=== PATIENT | female | born 1950 | race African-American/Black ===

== ENCOUNTER 2018-02-27 22:39 | Inpatient (IN) | payer OTHER, MEDICAID ==
[~2018-02-27] VITALS: Ht 170.2 cm; Wt 59.9 kg
[2018-02-28] MEDS ORDERED: MAGNESIUM HYDROXIDE 30 ML UDC PO PRN (05:30)
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
[2018-02-28] MEDS ORDERED: AMLO5TAB7 (06:53)
[2018-02-28] MEDS ORDERED: LISI-607 PO (06:53)
[2018-02-28] MEDS ORDERED: BENA20TA9 (06:53)
[2018-02-28] MEDS ORDERED: OMEP40CA37 PO (06:53)
[2018-02-28] MEDS ORDERED: EZET10TA27 PO (06:53)
[2018-02-28] MEDS ORDERED: LEVO25TA7 (06:53)
[2018-02-28] MEDS ORDERED: ASPI-1169 (06:53)
[2018-02-28] MEDS ORDERED: CELE-85 PO (06:53)
[2018-02-28] MEDS ORDERED: BISA-79 (06:54)
[2018-02-28] MEDS ORDERED: HYDR-3026 (06:54)
[2018-02-28] MEDS ORDERED: LUBI24CA5 (06:54)
[2018-02-28] MEDS ORDERED: DICL50TA9 (06:54)
[2018-02-28] MEDS ORDERED: DILT-32 (06:54)
[2018-02-28] MEDS ORDERED: FERR325T23 (06:54)
[2018-02-28] MEDS ORDERED: DIVA-78 PO (06:54)
[2018-02-28] MEDS ORDERED: CITA20TA16 (06:54)
[2018-02-28] MEDS ORDERED: RISP3TAB14 (06:54)
[2018-02-28] MEDS ORDERED: DIGO125T (06:54)
[2018-02-28] MEDS ORDERED: PANT40TA4 (06:54)
[2018-02-28] MEDS ORDERED: HALO5TAB (06:54)
[2018-02-28] MEDS ORDERED: OMEG1CAP55 (06:54)
[2018-02-28 08:00] VITALS: BP 100/52
[2018-02-28 08:16] LABS: ALBUMIN 3.3 g/dL (3.4-5.0); BILIRUBIN,TOTAL 0.2 mg/dL (0.2-1.0); CALCIUM, SERUM 9.3 mg/dL (8.5-10.1); CREATININE 0.7 mg/dL (0.6-1.3); POTASSIUM 4.5 mmol/L (3.5-5.1); TOTAL PROTEIN, SERUM 7.6 g/dL (6.4-8.2)
[2018-02-28] MEDS ORDERED: TEMAZEPAM 7.5 MG CAPSULE PO PRN (09:00)
[2018-02-28] MEDS: LORAZEPAM 0.5 MG TABLET PO PRN ×2 (10:07→20:37)
[2018-02-28] MEDS: DIVALPROEX SODIUM 250 MG TABLET.DR PO SCH ×2 (13:00→19:47)
[2018-02-28] MEDS: risperiDONE 1 MG TABLET PO SCH ×3 (13:00→16:21)
[2018-02-28] MEDS: BENZTROPINE MESYLATE (1 MG) 1 MG TABLET PO SCH ×2 (13:04→16:21)
--- NOTE | 2018-02-28 14:33 | NUR ---
DAJUAN STATED THAT MED RECON NOT DONE RIGHT. TOLD US TO FIND WHAT MEDS SHE IS ON. WE CALLED [facility] AND LEFT A MESSAGE. CALLED THE FACILITY SHE WAS AT AND LEFT A MESSAGE. WAITING FOR BOTH TO CALL BACK.
[2018-02-28 16:00] VITALS: BP 133/72
[2018-02-28] MEDS: MAG HYDROX/AL HYDROX/SIMETH 30 ML UDC PO PRN (19:31)
[2018-02-28 19:55] VITALS: BP 168/82
[2018-02-28 20:00] VITALS: BP 162/82
--- NOTE | 2018-02-28 20:00 | NUR ---
GPS/RN OPENING NOTES RECEIVED PATIENT ALERT, AWAKE, AMBULATES NAD ABLE TO VERBALIZE NEEDS AT ALL TIMES, PROVIDED FLUIDS AND REFUSES TO TAKE DEPAKOTE PO MEDS BUT REQUESTED TO HAVE SOME MEDICATION MAALOX FOR STOMACH UPSET/GAS. RESPIRATIONS EVEN AND UNLABORED. SKIN WARM TO TOUCH. BEHAVIOR WITH NO S/S OF DISTRESS, RIGHT EYE BLIND, REQUIRE MONITORING, PATIENT DENIES PAIN AT THIS TIME, ATTEND TO NEEDS. WILL CONTINUE TO MONITOR, INSTRUCTED TO CALL FOR HELP.
--- NOTE | 2018-02-28 20:33 | NUR ---
GPS/RN NOTES PATIENT EXBITING S/S OF AGITATION, PACING AND VERBALIZING NEEDS
[2018-02-28] MEDS: TEMAZEPAM 7.5 MG CAPSULE PO PRN (22:19)
--- NOTE | 2018-02-28 22:19 | NUR ---
gps/rn notes requested for medication to help sleep.alert, oriented, able to verbalize needs, in bed,
[2018-03-01] MEDS: MAG HYDROX/AL HYDROX/SIMETH 30 ML UDC PO PRN (04:02)
[2018-03-01] MEDS: LORAZEPAM 0.5 MG TABLET PO PRN ×3 (04:40→19:54)
--- NOTE | 2018-03-01 04:43 | NUR ---
gps/rn notes patient observe awake, verbalize needs to eat some snacks, informed and made aware about tv watching, coopertaive and able to do some pacing and reading but communicates with staff and charge nurse about opinions and feelings. discussed the plan for her to have her transfered to another room private by charge nurse and supervisor lump room decision, made aware and agreed for the thomas. requeted to have ativan as patient appears/observe inability to relax.
[2018-03-01] MEDS: ACETAMINOPHEN 325 MG TABLET PO PRN (05:22)
--- NOTE | 2018-03-01 05:24 | NUR ---
GPS/RN NOTES AWAKEN FROM SLEEP ASKED FOR SOME SNACKS AND TYLENOL
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
--- NOTE | 2018-03-01 07:00 | NUR ---
gps/rn notes patient was trasfered to [facility] floor 2 by shoe lacer and charge nurse and supervisor acoustical tile carpenters made aware as planned and agreed by patient. ambulatory. one on one sitter with patient for safety.
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
--- NOTE | 2018-03-01 07:07 | NUR ---
RN GPS NOTES PATIENT ARRIVED TO UNIT @ 0701 AMBULATORY FROM GPS ACCOMPANIED BY GPS NURSE AND SITTER. ALERT AND ORIENTED X 2, CONFUSED. PT RE-ORIENTED TO UNIT, ROOM AND STAFF. ON ROOM AIR, BREATHING EVEN AND UNLABORED. ALL SAFETY MEASURES IN PLACE. WILL CONTINUE TO MONITOR PATIENT.
[2018-03-01 07:42] LABS: CHOLESTEROL 169 mg/dL (<200); HDL CHOLESTEROL 69 mg/dL (40-60); LDL 104 mg/dL (0-99); TRIGLYCERIDES 59 mg/dL (30-150)
[2018-03-01] MEDS: risperiDONE 1 MG TABLET PO SCH ×3 (07:51→16:35)
[2018-03-01] MEDS: BENZTROPINE MESYLATE (1 MG) 1 MG TABLET PO SCH ×3 (07:51→16:35)
[2018-03-01 08:00] VITALS: BP 107/61
[2018-03-01] MEDS: DIVALPROEX SODIUM 250 MG TABLET.DR PO SCH (09:00)
--- NOTE | 2018-03-01 09:53 | NUR ---
INITIAL DISCHARGE PLAN: Patient wishes to be discharged to [facility] Address: [address], [place] [address] . TOMMY will help form a safe and proper discharge in collaboration with .
--- NOTE | 2018-03-01 09:57 | NUR ---
UR NOTE: TOMMY faxed clinical review to Simin from [facility]: [phone] P: [phone] ex 223.
[2018-03-01] MEDS: OXCARBAZEPINE 150 MG TABLET PO SCH ×2 (10:54→16:35)
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
[2018-03-01] MEDS ORDERED: HALOPERIDOL LACTATE INJ 5 MG/ML VIAL IM ONE (11:30)
--- NOTE | 2018-03-01 11:47 | NUR ---
RN NOTES PATIENT ADMINISTERED HALOPERIDOL 2MG IM ON HER LEFT DELTOID AT 1130. BP WAS 132/74 MMHG. WILL CONTINUE TO MONITOR.
--- NOTE | 2018-03-01 15:28 | NUR ---
RN NOTES RECEIVED CALL FROM GITA VANEGAS OF [facility] AND WAS INFORMED THAT PT IS POSITIVE OF MRSA OF BOTH NARES. CONTACT ISOLATION STARTED. WILL CONTINUE TO MONITOR.
--- NOTE | 2018-03-01 15:44 | NUR ---
RN NOTES DR GRAFF CAME TO UNIT AND INFORMED THAT PT IS POSITIVE FOR MRSA OF BOTH NARES. HE ORDERED TO START PT ON BACTROBAN OINTMENT TO BOTH NARES Q 12HRS. WILL CONTINUE TO MONITOR
[2018-03-01 17:48] VITALS: BP 125/58
--- NOTE | 2018-03-01 18:37 | NUR ---
GPS/RN CLOSING NOTES PATIENT ASLEEP IN BED AT THIS TIME, EASILY AWAKENS. 1:1 SITTER AT BEDSIDE. PT IS A/O X 2-3, SAME ABLE TO VERBALIZED NEEDS. DENIES HI/SI DURING SHIFT. ALL NEEDS AND CARE ATTENDED WELL. ON ROOM AIR, RESPIRATIONS EVEN AND UNLABORED, SKIN WARM TO TOUCH. ALL SAFETY MEASURES KEPT IN PLACE. BED IN LOW/LOCKED POSITION WITH SIDE RAILS UP 2X. WILL ENDORSE TO ROUTE SALESPERSON NURSE FOR ISABEL.
--- NOTE | 2018-03-01 19:59 | NUR ---
RN NOTES PT IS ANXIOUS- ATIVAN 0.5MG PO GIVEN ORDERED, V/S STABLE
[2018-03-01 20:00] VITALS: BP 108/72
[2018-03-01] MEDS: MUPIROCIN OINT 2% 22 GM TUBE SCH (21:25)
[2018-03-02] MEDS: TEMAZEPAM 7.5 MG CAPSULE PO PRN ×2 (00:36→21:56)
--- NOTE | 2018-03-02 00:44 | NUR ---
RN NOTES PT. ASKED FOR SLEEPING PILL- RESTORIL 7.5MG POP GIVEN ORDERED
[2018-03-02] MEDS: ACETAMINOPHEN 325 MG TABLET PO PRN ×3 (01:37→14:43)
--- NOTE | 2018-03-02 02:10 | NUR ---
RN NOTES PT ASKED FOR PAIN MEDICATION- TYLENOL 650MG PO GVEIN ORDERED
[2018-03-02] MEDS: LORAZEPAM 0.5 MG TABLET PO PRN ×3 (03:52→17:39)
--- NOTE | 2018-03-02 03:57 | NUR ---
RN NOTES PT IS SO ANXIOUS AND STARTED TO SCREAM- ATIVAN 0.5 MG PO GIVEN ORDERED
--- NOTE | 2018-03-02 07:17 | NUR ---
GPS/RN OPENING NOTES PATIENT RECEIVED AWAKE AND WALKING AROUND IN HER ROOM. 1:1 SITTER PRESENT IN ROOM. A/O X 2-3. ABLE TO COMMUNICATE VERBALLY, DENIES PAIN OR DISCOMFORTS AT THIS TIME. DENIES HI/SI. ON ROOM AIR, RESPIRATIONS EVEN AND UNLABORED, SKIN WARM TO TOUCH. CONTACT PRECAUTIONS FOR MRSA OF NARES MAINTAINED. ALL SAFETY MEASURES IN PLACE. BED IN LOW/LOCKED POSITION WITH SIDE RAILS UP 2X. WILL CONTINUE TO MONITOR PT.
[2018-03-02] MEDS: BENZTROPINE MESYLATE (1 MG) 1 MG TABLET PO SCH ×3 (07:51→17:39)
[2018-03-02] MEDS: risperiDONE 1 MG TABLET PO SCH ×3 (07:51→17:39)
[2018-03-02 08:00] VITALS: BP 129/69
[2018-03-02] MEDS: OXCARBAZEPINE 150 MG TABLET PO SCH ×2 (08:44→17:39)
[2018-03-02] MEDS: MUPIROCIN OINT 2% 22 GM TUBE SCH ×2 (08:45→21:57)
--- NOTE | 2018-03-02 10:31 | NUR ---
RN NOTES PATIENT RESTLESS, TALKING LOUDLY AND ANXIOUS. ATIVAN 0.5MG TAB GIVEN AT 1029. WILL CONTINUE TO MONITOR.
--- NOTE | 2018-03-02 13:36 | NUR ---
UR NOTE: TOMMY faxed clinical review to Simin from [facility]: [phone] P: [phone] ex 223.
--- NOTE | 2018-03-02 14:44 | NUR ---
COLLABORATIVE PHYSICIAN PATIENT COMPLAINED OF MILD HEADACHE AND REQUESTED FOR TYLENOL. [place] [address]. WILL CONTINUE TO MONITOR
[2018-03-02 16:00] VITALS: BP 118/62
--- NOTE | 2018-03-02 17:41 | NUR ---
RN NOTES PATIENT NOTED ANXIOUS AND AGITATED. ATIVAN 0.5MG TAB GIVEN AT 1739. WILL CONTINUE TO MONITOR.
--- NOTE | 2018-03-02 18:16 | NUR ---
RN NOTES PATIENT TRANSFERRED FROM M/S 2 ROOM 209-1 TO GPS ROOM 217-1 VIA WHEELCHAIR AT 1805. REPORT GIVEN TO NURSE BAUER.
--- NOTE | 2018-03-02 18:20 | NUR ---
GPS/RN-NOTES RECEIVED REPORT FROM AMISHA (RN) MS2 OVERFLOW. PATIENT AWAKE,ALERT/ORIENTED X3 UP IN THE WHEELCHAIR.PATIENT ABLE TO AMBULATE WITH STEADY GAIT. ALL BELONGINGS WAS PUT IN THE HIS CLOSET.
[2018-03-03] MEDS: LORAZEPAM 0.5 MG TABLET PO PRN (03:09)
[2018-03-03] MEDS: MAG HYDROX/AL HYDROX/SIMETH 30 ML UDC PO PRN (03:16)
[2018-03-03 08:00] VITALS: BP 119/57
[2018-03-03] MEDS: BENZTROPINE MESYLATE (1 MG) 1 MG TABLET PO SCH ×3 (08:34→17:53)
[2018-03-03] MEDS: risperiDONE 1 MG TABLET PO SCH ×3 (08:35→17:53)
[2018-03-03] MEDS: OXCARBAZEPINE 150 MG TABLET PO SCH ×3 (08:35→17:53)
[2018-03-03] MEDS: MUPIROCIN OINT 2% 22 GM TUBE SCH ×2 (11:22→22:29)
[2018-03-03 16:00] VITALS: BP 136/55
--- NOTE | 2018-03-03 16:31 | NUR ---
[address] ESPANA IN TO SEE PT.
[2018-03-03 20:00] VITALS: BP 154/91
[2018-03-03] MEDS: ATORVASTATIN 10 MG TABLET PO SCH (22:25)
[2018-03-03] MEDS: TEMAZEPAM 7.5 MG CAPSULE PO PRN (23:47)
--- NOTE | 2018-03-03 23:48 | NUR ---
C/O INSOMNIA, TEMAZEPAM 7.5 MG CAP PO GIVEN PER PATIENT'S REQUEST.
[2018-03-04 08:00] VITALS: BP 121/73
[2018-03-04] MEDS: BENZTROPINE MESYLATE (1 MG) 1 MG TABLET PO SCH ×4 (09:00→17:03)
[2018-03-04] MEDS: MAG HYDROX/AL HYDROX/SIMETH 30 ML UDC PO PRN (09:00)
[2018-03-04] MEDS: risperiDONE 1 MG TABLET PO SCH ×4 (09:00→17:03)
[2018-03-04] MEDS: OXCARBAZEPINE 150 MG TABLET PO SCH ×4 (09:00→17:03)
[2018-03-04] MEDS: LORAZEPAM 0.5 MG TABLET PO PRN ×2 (09:00→23:58)
[2018-03-04] MEDS: MUPIROCIN OINT 2% 22 GM TUBE SCH ×2 (09:01→21:29)
[2018-03-04] MEDS: ACETAMINOPHEN 325 MG TABLET PO PRN (14:48)
[2018-03-04 16:00] VITALS: BP 138/82
[2018-03-04 20:24] VITALS: BP 124/49
[2018-03-04] MEDS: ATORVASTATIN 10 MG TABLET PO SCH (21:29)
[2018-03-04] MEDS: TEMAZEPAM 7.5 MG CAPSULE PO PRN (22:02)
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
[2018-03-05] MEDS: ACETAMINOPHEN 325 MG TABLET PO PRN (02:23)
[2018-03-05] MEDS: MAG HYDROX/AL HYDROX/SIMETH 30 ML UDC PO PRN ×3 (05:55→21:05)
[2018-03-05 08:00] VITALS: BP 112/71
[2018-03-05] MEDS: BENZTROPINE MESYLATE (1 MG) 1 MG TABLET PO SCH ×3 (08:23→16:27)
[2018-03-05] MEDS: OXCARBAZEPINE 150 MG TABLET PO SCH ×3 (08:23→16:27)
[2018-03-05] MEDS: MUPIROCIN OINT 2% 22 GM TUBE SCH ×2 (08:23→21:08)
[2018-03-05] MEDS: risperiDONE 1 MG TABLET PO SCH ×3 (08:23→16:26)
--- NOTE | 2018-03-05 09:06 | NUR ---
UR NOTE: TOMMY faxed clinical review to Simin from [facility]: [phone] P: [phone] ex 223.
[2018-03-05] MEDS: LORAZEPAM 0.5 MG TABLET PO PRN (10:56)
--- NOTE | 2018-03-05 10:57 | NUR ---
RN NOTES PATIENT NOTED ANXIOUS AND AGITATED. ATIVAN 0.5MG TAB GIVEN WILL CONTINUE TO MONITOR.
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
[2018-03-05 16:00] VITALS: BP 145/91
[2018-03-05 20:00] VITALS: BP 123/58
[2018-03-05 20:49] VITALS: BP 123/58
[2018-03-05] MEDS: TEMAZEPAM 7.5 MG CAPSULE PO PRN (21:05)
[2018-03-05] MEDS: ATORVASTATIN 10 MG TABLET PO SCH (21:05)
[2018-03-06] MEDS: LORAZEPAM 0.5 MG TABLET PO PRN ×2 (00:57→08:45)
[2018-03-06] MEDS: ACETAMINOPHEN 325 MG TABLET PO PRN (04:18)
[2018-03-06] MEDS: MAG HYDROX/AL HYDROX/SIMETH 30 ML UDC PO PRN ×2 (05:34→10:41)
[2018-03-06 08:00] VITALS: BP 130/72
--- NOTE | 2018-03-06 08:23 | NUR ---
UR NOTE: TOMMY faxed clinical review to Simin from [facility]: [phone] P: [phone] ex 223.
[2018-03-06] MEDS: BENZTROPINE MESYLATE (1 MG) 1 MG TABLET PO SCH ×3 (08:45→16:35)
[2018-03-06] MEDS: risperiDONE 1 MG TABLET PO SCH ×3 (08:45→16:35)
[2018-03-06] MEDS: OXCARBAZEPINE 150 MG TABLET PO SCH ×3 (08:45→16:35)
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
[2018-03-06] MEDS: MUPIROCIN OINT 2% 22 GM TUBE SCH ×2 (08:46→21:41)
[2018-03-06] MEDS: HALOPERIDOL 1 MG TABLET PO SCH ×2 (15:43→21:41)
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
[2018-03-06 16:00] VITALS: BP 140/73
[2018-03-06 20:00] VITALS: BP 146/63
[2018-03-06 20:32] VITALS: BP 146/63
[2018-03-06] MEDS: ATORVASTATIN 10 MG TABLET PO SCH (21:40)
[2018-03-06] MEDS: TEMAZEPAM 7.5 MG CAPSULE PO PRN (21:41)
[2018-03-07] MEDS: LORAZEPAM 0.5 MG TABLET PO PRN (01:01)
[2018-03-07] MEDS: ACETAMINOPHEN 325 MG TABLET PO PRN ×2 (02:05→18:02)
[2018-03-07] MEDS: MAG HYDROX/AL HYDROX/SIMETH 30 ML UDC PO PRN (02:05)
[2018-03-07 08:00] VITALS: BP 139/67
[2018-03-07] MEDS: BENZTROPINE MESYLATE (1 MG) 1 MG TABLET PO SCH ×3 (08:16→16:42)
[2018-03-07] MEDS: risperiDONE 1 MG TABLET PO SCH ×3 (08:16→16:42)
[2018-03-07] MEDS: HALOPERIDOL 1 MG TABLET PO SCH (08:16)
[2018-03-07] MEDS: OXCARBAZEPINE 150 MG TABLET PO SCH ×3 (08:16→16:42)
[2018-03-07] MEDS: MUPIROCIN OINT 2% 22 GM TUBE SCH ×2 (08:41→21:51)
[2018-03-07] MEDS ORDERED: HALOPERIDOL DECANOATE IM 100 MG/ML AMPUL IM SCH (09:00)
--- NOTE | 2018-03-07 09:38 | NUR ---
UR NOTE: TOMMY faxed clinical review to Simin from [facility]: [phone] P: [phone] ex 223.
[2018-03-07] MEDS: LORAZEPAM 1 MG TABLET PO PRN ×2 (11:23→22:12)
--- NOTE | 2018-03-07 11:25 | NUR ---
NURSING NOTE PT AGITATED, YELLING, CUSSING AT OTHER PTS AND STAFF, PACING THE HALLWAY, CALLED DR. AGUILLON FOR ATIVAN 1MG PO. ORDER WAS OBTAINED, ADMINISTERED ATIVAN 1MG PO @1123. WILL CONTINUE TO MONITOR FOR SAFETY AND BEHAVIOR.
--- NOTE | 2018-03-07 11:45 | NUR ---
NURSING NOTE DR. MOYER NOTIFIED OF PT RECEIVING ATIVAN 1MG PO ORDER FROM DR. AGUILLON.
[2018-03-07 17:03] VITALS: BP 135/62
[2018-03-07 19:56] VITALS: BP 112/72
[2018-03-07] MEDS: TEMAZEPAM 7.5 MG CAPSULE PO PRN (22:12)
[2018-03-07] MEDS: ATORVASTATIN 10 MG TABLET PO SCH (22:13)
[2018-03-08] MEDS: OXCARBAZEPINE 150 MG TABLET PO SCH (08:13)
[2018-03-08] MEDS: risperiDONE 1 MG TABLET PO SCH (08:14)
[2018-03-08] MEDS: BENZTROPINE MESYLATE (1 MG) 1 MG TABLET PO SCH (08:14)
[2018-03-08] MEDS: MUPIROCIN OINT 2% 22 GM TUBE SCH (09:30)
--- NOTE | 2018-03-08 10:00 | NUR ---
GPS/RN PATIENT REFUSED TO SHOWER, ENCOURAGED X 3, EXPLAINED RISKS AND BENEFITS, WILL CONTINUE TO ENCOURAGE TO SHOWER AND ALLOW STAFF TO ASSIST WITH CARE.
--- NOTE | 2018-03-08 11:45 | NUR ---
GPS/RN PATIENT CLEARED FOR DISCHARGE BY DR MOYER AND DR TAYLOR. MEDICATIONS RECONCILED AND PRESCRIPTIONS CALLED INTO PHARMACY AND FAXED TO PHARMACY. SPOKE WITH SAADIA. MEDICATIONS, EXIT CARE AND AFTERCARE PLAN EXPLAINED ANNETTE PATIENT, VERBALIZED UNDERSTANDING. PATIENT REFUSED TO SIGNS D/C FORMS, COSIGNED BY 2 RN. REFUSED D/C PHOTO X 3, EXPLAINED RISKS AND BENEFITS. REFUSED TO SHOWER PRIOR TO DISCHARGE DESPITE ENCOURAGEMENT. BELONGINGS RETURNED TO PATIENT. PATIENT DENIES SI/HI/AVH, PSYCHIATRIC TREATMENT PLANS MET. LEFT UNIT CALM, NO DISTRESS NOTED WITH TRANSPORT AND CORK INSULATOR HELPER AT SIDE.
--- NOTE | 2018-03-08 12:28 | NUR ---
DISCHARGE NOTE: Pt was discharged at 11:45am to [facility] Housing [address] [place], [address]. Pt was picked up and transported by [facility] Mental [facility] social media editor Kierra Milan [phone] via private vehicle. Pt denied visual/auditory hallucinations and denied suicidal/homicidal ideations. Pts mood was pleasant with congruent affect. For smoking cessation, patient was referred to the [employer] or [facility] [id number]. Patient was provided referrals to address her substance use. Patient was referred to [facility]: [address] [place] [address] pt was encouraged to report for an Intake on Friday March 09, 2018 before 5:00pm. Additional resources included [facility] [address] [place] [address] and [facility] [address] [place] [address] . [facility] [address] and continue treatment with Department of Mental Health. Pt was also provided with referral to [facility] [address] [address] . The multidisciplinary exitcare form was done, printed, signed, and given to the patient.
--- NOTE | 2018-03-12 09:11 | NUR ---
Department of Mental Health social services technician Kierra Milan [phone] contacted SW stating that pt was prescribed the incorrect medication and had been attempting to get it fixed since of last week. SW stated that she was unaware and would speak to charge nurse regarding her issue. [facility] TOMMY was upset stating pt hadn't been taking her medication since her discharge and was blaming it on Rx. TOMMY transferred call to charge nurse.
--- NOTE | 2018-03-12 11:54 | NUR ---
UR NOTE: TOMMY faxed discharge summary/discharge medications to Simin from [facility]: [phone] P: [phone] ex 223.
== END 2018-03-08 11:00 | disposition home or self-care (01) | DRG 885 ==
LOC: GPS 02-28 04:36 → GPSOV2 03-01 07:02 → GPS 03-02 18:03
PROVIDERS: ADMIT Psychiatry & Neurology Psychiatry; ATTEND Internal Medicine
DX: F25.0 Schizoaffective disorder, bipolar type (principal); F01.50 Vascular dementia, unspecified severity, without behavioral disturbance, psychotic disturbance, mood disturbance, and anxiety; F41.9 Anxiety disorder, unspecified; I10 Essential (primary) hypertension; E78.5 Hyperlipidemia, unspecified; Z22.322 Carrier or suspected carrier of Methicillin resistant Staphylococcus aureus; Z88.0 Allergy status to penicillin; Z59.0 Homelessness; Z91.14 Patient's other noncompliance with medication regimen; R45.1 Restlessness and agitation
CPT/HCPCS: 36415; 80053-TC; 80061-TC; 87081-TC; A6402; J1630; J1631; Z7610